=== PATIENT | female | born 1990 | race African-American/Black ===

== ENCOUNTER 2021-10-19 12:10 | Outpatient (CLI) | payer MEDICAID ==
[~2021-10-19] VITALS: Ht 160 cm; Wt 130.9 kg
[2021-10-19] MEDS ORDERED: FLAGYL500 MG (12:41)
[2021-10-19] MEDS ORDERED: PROMETRIUM200 M1 VG (12:41)
[2021-10-19 13:00] VITALS: BP 111/56; PULSE 85; TEMP 98.2
[2021-10-19 13:30] VITALS: BP 130/61; PULSE 87
--- NOTE | 2021-10-19 13:50 | NUR ---
1350- Pt report called to LINDA Ortega at [facility].
--- NOTE | 2021-10-19 14:02 | NUR ---
31 YO G8 L2 AT 27.3 WKS GESTATION TO LABOR ROOM 2 FOR SHORTENED CERVIX WITH PLAN TO TRANSFER PER EMS TO [place] UNDER SERVICES OF DR QUIROGA
--- NOTE | 2021-10-19 14:30 | NUR ---
NO UTERINE CTXS PALPATED OR MONITORED, FHT'S DIFFICULT TO TRACE D/T GESTATIONAL AGE AND MATERNAL SIZE
--- NOTE | 2021-10-19 14:30 | NUR ---
wireworker contacted [facility] ambulance and confirmed that spouse can ride in the ambulance. Worker notified nurse, Kalie, of the above information. Patient is transferring to hospital in [place].
--- NOTE | 2021-10-19 14:35 | NUR ---
1225 - TRANSFEERED TO [place] PER [facility]
--- NOTE | 2021-10-19 14:39 | NUR ---
1420 - FHT'S 145 PER [facility], UP TO VOID PRIOR TO TRANSFER
--- NOTE | 2021-10-19 14:42 | NUR ---
1300 - 18G TO RIGHT HAND STARTED BY Nilesh CASEY RN X2 ATTEMPTS, LR INFUSING TO GRAVITY
--- NOTE | 2021-10-19 15:03 | NUR ---
DR QUIROGA AT BEDSIDE, REVIEWS HEART TRACING AND TOCOS, OK TO TAKE PT OFF OF [facility]. SPEAKS WITH PT AND ABOUT PLAN OF CARE TO TRANSFER PER EMS
== END 2021-10-19 14:25 | disposition short-term general hospital (02) ==
LOC: LDRO 12:10
DX: O26.879 Cervical shortening, unspecified trimester (principal); Z3A.00 Weeks of gestation of pregnancy not specified
CPT/HCPCS: J7120